=== PATIENT | female | born 1935 | race Caucasian/White ===

== ENCOUNTER 2017-11-02 09:02 | Emergency (ER) | payer OTHER ==
[~2017-11-02] VITALS: Ht 154.9 cm; Wt 72.7 kg
[~2017-11-02 09:02] MED LIST: ACID CONTROL150 MG PO; CHOLESTEROL MA600 MG PO; CO Q-10200 MG PO; Coumadin Protocol PO; Dulcolax PO; Dulcolax PR; FLUTICASONE PRO16 GM BOTH NARES; Feosol PO; LEXAPRO5 MG PO; LISINOPRIL20 MG PO; LOW DOSE ASPIRI81 M1 PO; Lexapro PO; MULTIVITAMIN1 EAC2 PO; MURO-128 OPHTH3.5 GM BOTH EYES; PriLOSEC OTC PO; Senokot S,Pericolace PO; Theragran PO; Ultram PO; VIACTIV PO; Vicodin,Norco 5/325 PO; Xanax PO; Zestril,Prinivil PO; celeBREX PO
[2017-11-02 10:07] LABS: HEMATOCRIT 44.9 % (36.0-46.0); HEMOGLOBIN 15.1 G/DL (11.9-15.5); MCH 30.8 PG (29.0-34.0); MCHC 33.6 G/DL (30.0-36.0); MCV 91.4 FL (83-99); RBC DIS.WIDTH-CV 12.3 % (11.8-14.6); RED BLOOD COUNT 4.91 M/uL (3.80-5.20); WHITE BLOOD COUNT 8.9 K/uL (4.1-10.2)
[2017-11-02 10:16] LABS: ALBUMIN 4.3 g/dL (3.2-4.8); CHLORIDE 100 mEq/L (99-109); POTASSIUM 4.4 mEq/L (3.7-5.4); SODIUM 135 mEq/L (136-147)
[2017-11-02 10:18] LABS: GLUCOSE 114 mg/dL (70-99)
[2017-11-02 10:19] LABS: TOTAL PROTEIN 7.4 g/dL (6.4-8.3)
[2017-11-02 10:20] LABS: TOTAL BILIRUBIN 1.4 mg/dL (0.0-1.0)
[2017-11-02 10:22] LABS: ALKALINE PHOSPHATASE 72 IU/L (3-129); CREATININE 0.9 mg/dL (0.6-1.3); GFR ESTIMATE (CALCULATED) > 59 mL/min/
[2017-11-02 10:23] LABS: UREA NITROGEN (BUN) 15 mg/dL (9-23)
[2017-11-02 10:24] LABS: AST (GOT) 24 IU/L (2-34)
[2017-11-02 10:25] LABS: ALT (GPT) 16 IU/L (3-49)
[2017-11-02 10:51] LABS: APPEARANCE CLEAR ((CLEAR)); BILIRUBIN NEGATIVE; BLOOD NEGATIVE; COLOR YELLOW ((YELLOW)); GLUCOSE (STRIP) NEGATIVE; KETONES NEGATIVE; LEUKOCYTES TRACE; NITRITE NEGATIVE; PROTEIN (STRIP) NEGATIVE; SPECIFIC GRAVITY 1.012 (1.000-1.030); UROBILINOGEN 0.2 MG/DL (0.2-1.0)
[2017-11-02 10:59] LABS: BACTERIA RARE /HPF; EPITHELIAL CELLS RARE /HPF; MUCUS TRACE /LPF; RED BLOOD CELLS 0-5 /HPF (0-5); UCUL ADDED? NO; WHITE BLOOD CELLS 0-5 /HPF (0-5)
[2017-11-02 11:05] LABS: PLAT.SUFFICIENCY ADEQUATE; PLATELET COUNT 175 K/uL (156-360)
[2017-11-02 12:32] VITALS: BP 143/69
== END 2017-11-02 12:42 | disposition home or self-care (01) ==
LOC: EME 09:02
PROVIDERS: Nurse Practitioner Family
DX: K59.00 Constipation, unspecified (principal); K57.30 Diverticulosis of large intestine without perforation or abscess without bleeding; I10 Essential (primary) hypertension; M41.9 Scoliosis, unspecified; F41.9 Anxiety disorder, unspecified; Z79.891 Long term (current) use of opiate analgesic; Z79.01 Long term (current) use of anticoagulants; Z96.643 Presence of artificial hip joint, bilateral; Z90.49 Acquired absence of other specified parts of digestive tract
CPT/HCPCS: 74177; 80053; 81003; 85027; 99281; 99285; J2405; J7030

== ENCOUNTER 2017-12-12 14:53 | Emergency (ER) | payer OTHER ==
[~2017-12-12] VITALS: Ht 154.9 cm; Wt 68.6 kg
[2017-12-12 15:04] VITALS: BP 158/93
== END 2017-12-12 15:57 | disposition left against medical advice (07) ==
LOC: EME 14:53
DX: K13.79 Other lesions of oral mucosa (principal); Z53.21 Procedure and treatment not carried out due to patient leaving prior to being seen by health care provider

== ENCOUNTER 2017-12-17 16:28 | Emergency (ER) | payer OTHER ==
[~2017-12-17] VITALS: Ht 154.9 cm; Wt 65.4 kg
[2017-12-17 17:58] LABS: BASOPHIL (%) 0.4 % (0-1); EOSINOPHIL (%) 1.7 % (0-5); EOSINOPHIL COUNT 0.2 K/uL (0-0.3); HEMATOCRIT 43.2 % (36.0-46.0); IMMATURE GRANULOCYTE (%) 0.3 % (0.0-0.7); LYMPHOCYTE (%) 19.2 % (15-42); LYMPHOCYTE COUNT 1.8 K/uL (1.0-2.8); MCH 30.7 PG (29.0-34.0); MCHC 34.7 G/DL (30.0-36.0); MCV 88.3 FL (83-99); MONOCYTE (%) 7.6 % (3-12); MONOCYTE COUNT 0.7 K/uL (0-0.8); NEUTROPHIL (%) 70.8 % (45-76); NEUTROPHIL COUNT 6.5 K/uL (1.8-6.4); PLATELET COUNT 204 K/uL (156-360); RBC DIS.WIDTH-CV 12.5 % (11.8-14.6); RBC DIS.WIDTH-SD 40.6 % (39-53); RED BLOOD COUNT 4.89 M/uL (3.80-5.20); WHITE BLOOD COUNT 9.2 K/uL (4.1-10.2)
[2017-12-17 18:06] LABS: ALBUMIN 4.1 g/dL (3.2-4.8); CHLORIDE 97 mEq/L (99-109); POTASSIUM 4.3 mEq/L (3.7-5.4); SODIUM 130 mEq/L (136-147)
[2017-12-17 18:08] LABS: GLUCOSE 97 mg/dL (70-99)
[2017-12-17 18:09] LABS: TOTAL PROTEIN 6.9 g/dL (6.4-8.3)
[2017-12-17 18:10] LABS: TOTAL BILIRUBIN 1.7 mg/dL (0.0-1.0)
[2017-12-17 18:12] LABS: ALKALINE PHOSPHATASE 73 IU/L (3-129); CREATININE 0.8 mg/dL (0.6-1.3); GFR ESTIMATE (CALCULATED) > 59 mL/min/
[2017-12-17 18:13] LABS: UREA NITROGEN (BUN) 12 mg/dL (9-23)
[2017-12-17 18:14] LABS: AST (GOT) 24 IU/L (2-34)
[2017-12-17 18:15] LABS: ALT (GPT) 20 IU/L (3-49)
[2017-12-17 20:56] VITALS: BP 150/86
== END 2017-12-17 20:57 | disposition home or self-care (01) ==
LOC: EME 16:28
PROVIDERS: Emergency Medicine
DX: R07.0 Pain in throat (principal); I10 Essential (primary) hypertension; M41.9 Scoliosis, unspecified; F41.9 Anxiety disorder, unspecified; Z79.01 Long term (current) use of anticoagulants; Z79.891 Long term (current) use of opiate analgesic; Z87.891 Personal history of nicotine dependence; Z96.643 Presence of artificial hip joint, bilateral; Z90.49 Acquired absence of other specified parts of digestive tract
CPT/HCPCS: 70491; 80053; 85025; 87651 90; 99281; 99285

== ENCOUNTER 2018-01-05 02:45 | Inpatient (IN) | payer OTHER ==
[~2018-01-05] VITALS: Ht 154.9 cm; Wt 64.3 kg
[~2018-01-05 02:45] MED LIST changes: +ZESTRIL10 MG PO
[2018-01-05 03:26] LABS: HEMATOCRIT 41.3 % (36.0-46.0); HEMOGLOBIN 14.8 G/DL (11.9-15.5); MCH 31.2 PG (29.0-34.0); MCHC 35.8 G/DL (30.0-36.0); MCV 87.1 FL (83-99); RBC DIS.WIDTH-CV 12.3 % (11.8-14.6); RBC DIS.WIDTH-SD 39.5 % (39-53); RED BLOOD COUNT 4.74 M/uL (3.80-5.20)
[2018-01-05 03:37] LABS: CHLORIDE 91 mEq/L (99-109); POTASSIUM 4.3 mEq/L (3.7-5.4); SODIUM 123 mEq/L (136-147)
[2018-01-05 03:38] LABS: GLUCOSE 104 mg/dL (70-99)
[2018-01-05 03:42] LABS: CREATININE 0.8 mg/dL (0.6-1.3); GFR ESTIMATE (CALCULATED) > 59 mL/min/
[2018-01-05 03:43] LABS: UREA NITROGEN (BUN) 9 mg/dL (9-23)
[2018-01-05 03:51] LABS: TROP-I INTERPRETATION NEGATIVE; TROPONIN-I < 0.01 ng/mL (0.0-0.30)
[2018-01-05 04:27] LABS: PLAT.SUFFICIENCY ADEQUATE; PLATELET COUNT 213 K/uL (156-360)
[2018-01-05 04:47] LABS: APPEARANCE CLEAR ((CLEAR)); BILIRUBIN NEGATIVE; BLOOD NEGATIVE; COLOR STRAW ((YELLOW)); GLUCOSE (STRIP) NEGATIVE; KETONES NEGATIVE; LEUKOCYTES MODERATE; NITRITE NEGATIVE; PROTEIN (STRIP) NEGATIVE; SPECIFIC GRAVITY 1.006 (1.000-1.030); UROBILINOGEN 0.2 MG/DL (0.2-1.0)
[2018-01-05 04:54] LABS: BACTERIA RARE /HPF; EPITHELIAL CELLS RARE /HPF; MUCUS TRACE /LPF; RED BLOOD CELLS 0-5 /HPF (0-5); UCUL ADDED? YES
[2018-01-05] MEDS ORDERED: BUSPAR10 MG PO ×2 (08:38→08:39)
[2018-01-05] MEDS ORDERED: LEXAPRO10 MG PO (08:38)
[2018-01-05] MEDS ORDERED: XALATAN2.5 ML BOTH EYES (08:39)
[2018-01-05] MEDS ORDERED: AZELASTINE137 MCG/0. BOTH NARES (08:40)
[2018-01-05 09:35] VITALS: BP 151/65
[2018-01-05 11:40] LABS: CHLORIDE 94 MEQ/L (99-109); CREATININE 0.8 MG/DL (0.6-1.3); GFR ESTIMATE (CALCULATED) > 59 mL/min/; GLUCOSE 96 mg/dL (70-99); POTASSIUM 4.4 MEQ/L (3.7-5.4); SODIUM 125 MEQ/L (136-147); UREA NITROGEN (BUN) 8 mg/dL (9-23)
[2018-01-05 12:25] VITALS: BP 132/63
[2018-01-05 15:47] LABS: CHLORIDE 92 MEQ/L (99-109); GFR ESTIMATE (CALCULATED) 57 mL/min/; GLUCOSE 101 mg/dL (70-99); POTASSIUM 4.3 MEQ/L (3.7-5.4); SODIUM 124 MEQ/L (136-147); UREA NITROGEN (BUN) 11 mg/dL (9-23)
[2018-01-05 16:39] VITALS: BP 135/90
[2018-01-05 19:10] VITALS: BP 109/53
[2018-01-05 19:15] LABS: CHLORIDE 95 MEQ/L (99-109); GFR ESTIMATE (CALCULATED) 57 mL/min/; GLUCOSE 117 mg/dL (70-99); POTASSIUM 4.3 MEQ/L (3.7-5.4); SODIUM 127 MEQ/L (136-147); UREA NITROGEN (BUN) 11 mg/dL (9-23)
[2018-01-05 23:42] VITALS: BP 150/56
[2018-01-06 02:55] VITALS: BP 139/64
[2018-01-06 06:10] LABS: HEMATOCRIT 38.1 % (36.0-46.0); HEMOGLOBIN 13.2 G/DL (11.9-15.5); MCH 31.2 PG (29.0-34.0); MCHC 34.6 G/DL (30.0-36.0); MCV 90.1 FL (83-99); PLATELET COUNT 190 K/uL (156-360); RBC DIS.WIDTH-CV 12.9 % (11.8-14.6); RBC DIS.WIDTH-SD 42.7 % (39-53); RED BLOOD COUNT 4.23 M/uL (3.80-5.20); WHITE BLOOD COUNT 6.1 K/uL (4.1-10.2)
[2018-01-06 06:39] LABS: ALBUMIN 3.4 G/DL (3.2-4.8); ALKALINE PHOSPHATASE 48 IU/L (3-129); ALT (GPT) 13 IU/L (3-49); AST (GOT) 17 IU/L (2-34); CHLORIDE 96 MEQ/L (99-109); GFR ESTIMATE (CALCULATED) 57 mL/min/; GLUCOSE 90 mg/dL (70-99); POTASSIUM 4.6 MEQ/L (3.7-5.4); SODIUM 130 MEQ/L (136-147); TOTAL BILIRUBIN 1.5 MG/DL (0.0-1.0); TOTAL PROTEIN 5.4 G/DL (6.4-8.3); UREA NITROGEN (BUN) 10 mg/dL (9-23)
[2018-01-06 08:10] VITALS: BP 148/70
[2018-01-06 12:08] VITALS: BP 139/65
[2018-01-06 15:58] VITALS: BP 147/67
[2018-01-06 16:34] VITALS: BP 145/67
[2018-01-06 23:05] VITALS: BP 154/70
[2018-01-07 06:27] LABS: CHLORIDE 97 MEQ/L (99-109); CREATININE 0.8 MG/DL (0.6-1.3); GFR ESTIMATE (CALCULATED) > 59 mL/min/; GLUCOSE 92 mg/dL (70-99); POTASSIUM 4.5 MEQ/L (3.7-5.4); SODIUM 129 MEQ/L (136-147); UREA NITROGEN (BUN) 8 mg/dL (9-23)
[2018-01-07 15:27] VITALS: BP 138/64
[2018-01-08 00:08] VITALS: BP 170/70
[2018-01-08 07:02] LABS: CHLORIDE 100 MEQ/L (99-109); CREATININE 0.8 MG/DL (0.6-1.3); GFR ESTIMATE (CALCULATED) > 59 mL/min/; GLUCOSE 97 mg/dL (70-99); POTASSIUM 4.2 MEQ/L (3.7-5.4); SODIUM 135 MEQ/L (136-147); UREA NITROGEN (BUN) 7 mg/dL (9-23)
[2018-01-08 07:28] VITALS: BP 182/81
[2018-01-08 09:36] VITALS: BP 152/68
[2018-01-08 09:47] VITALS: BP 142/95
[2018-01-08] MEDS ORDERED: ESCITALOPRAM OXA5 MG PO (09:47)
[2018-01-08] MEDS ORDERED: BUSPAR10 MG PO (09:48)
== END 2018-01-08 11:33 | DRG 641 ==
LOC: EME → EDBD 02:45 → EME 02:45 → EDOF 06:11 → 2EAST 06:11 → ENRESERV 06:13 → 2EAST 09:01
PROVIDERS: Emergency Medicine; Hospitalist; Student in an Organized Health Care Education/Training Program
DX: E87.1 Hypo-osmolality and hyponatremia (principal); T43.225A Adverse effect of selective serotonin reuptake inhibitors, initial encounter; F41.1 Generalized anxiety disorder; I10 Essential (primary) hypertension; M41.9 Scoliosis, unspecified; M54.2 Cervicalgia; M79.1 Myalgia; R11.0 Nausea; R20.2 Paresthesia of skin; R42 Dizziness and giddiness; R51 Headache; Z82.49 Family history of ischemic heart disease and other diseases of the circulatory system; Z96.643 Presence of artificial hip joint, bilateral; Z87.891 Personal history of nicotine dependence
CPT/HCPCS: 70496; 70498; 71046; 80048; 80048 91; 80053; 81003; 83930; 83935; 84295; 84484; 85027; 87077; 87086; 87186; 93005; 97530 GO; 99281; 99285; J1650; J7040; J7120